=== PATIENT | female | born 1975 | race Two or more races ===

== ENCOUNTER 2024-12-10 11:06 | Emergency (ER) | payer BC ==
[~2024-12-10] VITALS: Ht 172.7 cm; Wt 63.5 kg
[2024-12-10 11:22] VITALS: TEMP 98.3
[2024-12-10] MEDS ORDERED: DOXY100T2 PO (12:00)
[2024-12-10] MEDS ORDERED: AMOX500C2 PO (12:00)
[2024-12-10] MEDS ORDERED: ALBU18HF2 INH (12:00)
[2024-12-10 12:32] VITALS: BP 103/66
[2024-12-10 12:50] VITALS: O2SAT 98
== END 2024-12-10 13:11 | disposition home or self-care (01) ==
LOC: ER 11:15
DX: J18.9 Pneumonia, unspecified organism (principal); J02.9 Acute pharyngitis, unspecified; R04.2 Hemoptysis
CPT/HCPCS: 71045-TC; 86403-TC